=== PATIENT | male | born 1945 | race Caucasian/White ===

== ENCOUNTER → 2024-06-16 08:00 | Outpatient (BNVA) | payer MEDICARE, OTHER, SELFPAY | PROVIDERS: Visit Provider Psychiatry & Neurology Neurology | DX: R56.9 Unspecified convulsions (principal); G47.52 REM sleep behavior disorder; G20.A1 Parkinson's disease without dyskinesia, without mention of fluctuations | CPT/HCPCS: 99203 ==

== ENCOUNTER 2024-08-31 20:00 | Outpatient (CLI) | payer MEDICARE, OTHER, SELFPAY | END 2024-08-31 20:01 | disposition home or self-care (01) | LOC: SLEEP 23:46 | PROVIDERS: Visit Provider Psychiatry & Neurology Neurology | DX: G47.33 Obstructive sleep apnea (adult) (pediatric) (principal) | CPT/HCPCS: 95810 ==

== ENCOUNTER → 2025-01-18 15:27 | Outpatient (BNVA) | payer MEDICARE, OTHER, SELFPAY | PROVIDERS: Visit Provider Psychiatry & Neurology Neurology | DX: G20.A1 Parkinson's disease without dyskinesia, without mention of fluctuations (principal); R44.3 Hallucinations, unspecified; G47.52 REM sleep behavior disorder | CPT/HCPCS: 99212 ==

== ENCOUNTER → 2025-01-20 09:33 | Outpatient (BNVA) | payer MEDICARE, OTHER, SELFPAY | PROVIDERS: Referring Provider Psychiatry & Neurology Neurology; Visit Provider Psychiatry & Neurology Neurology | DX: R56.9 Unspecified convulsions (principal) | CPT/HCPCS: 95813 ==

== ENCOUNTER 2025-01-26 14:09 | Outpatient (CLI) | payer MEDICARE, OTHER, SELFPAY ==
--- NOTE | 2025-01-26 14:30 | MR_ITS ---
WS: [id number] MRI BRAIN WITH AND WITHOUT CONTRAST HISTORY: R25.1 - Tremor, unspecified COMPARISON: None available. TECHNIQUE: Multiplanar imaging performed through the brain with MultiHance 16 ml's IV. No acute infarcts are seen. Suarez-white matter differentiation is well preserved. Moderate bilateral hippocampal atrophy. Mild symmetric cerebral and cerebellar atrophy. No susceptibility artifacts or prior lacunar infarcts. Ventricles and extra-axial spaces are normal. Clivus and pituitary gland are normal. No posterior fossa infarct. Postcontrast images are negative for masses or vascular malformations. Dural venous sinuses are normal. Paranasal sinuses: Well aerated with no significant disease. Mastoid air cells: Normal. Calvarium and scalp: Normal. MR/MR head wo/w con [id number] IMPRESSION: 1. No acute infarct, hemorrhage or enhancing mass. 2. Mild symmetric cerebral and cerebellar atrophy with minimal small vessel di sease. 3. Moderate bilateral hippocampal atrophy.
[2025-01-26] MEDS: gadobenate dimeglumine 20 mL vial 16 ML IV (15:27)
== END 2025-01-26 14:10 | disposition home or self-care (01) ==
PROVIDERS: PCP Internal Medicine; Visit Provider Psychiatry & Neurology Neurology
DX: G20.A1 Parkinson's disease without dyskinesia, without mention of fluctuations (principal); R44.3 Hallucinations, unspecified; G31.89 Other specified degenerative diseases of nervous system
CPT/HCPCS: 70553